=== PATIENT | male | born 1945 | race Caucasian/White ===

== ENCOUNTER → 2016-08-01 | Outpatient (CLI) | payer BC ==
[2016-08-01 17:07] LABS: BASOPHILS % (AUTO) 0 % (0-2); EOSINOPHILS # (AUTO) 0.2 10^3uL; EOSINOPHILS % (AUTO) 2 % (0-4); LYMPHOCYTES # (AUTO) 1.8 X10^3; MEAN CORPUSCULAR HEMOGLOBIN 29.5 PG (26.0-34.0); MEAN CORPUSCULAR VOLUME 87 FL (80-100); MEAN PLATELET VOLUME 9.3 FL (6.0-9.5); MONOCYTES # (AUTO) 0.5 X10^3; MONOCYTES % (AUTO) 7 % (3-11); NEUTROPHILS # (AUTO) 4.9 X10^3; NEUTROPHILS % (AUTO) 66 % (51-67); PLATELET COUNT 298 10^3uL (150-450); WHITE BLOOD COUNT 7.42 10^3uL (4.0-11.0)
[2016-08-01 17:34] LABS: ALBUMIN 4.3 g/dL (3.4-5.0); ANION GAP 14.3 MEQ/L (3-15); CALCULATED IONIZED CALCIUM 4.2 mg/dL (3.8-4.6); TOTAL PROTEIN 7.6 g/dL (6.4-8.5)
== END ==
LOC: LAB 16:56
PROVIDERS: ATTEND Surgery
DX: R10.9 Unspecified abdominal pain (principal); K57.32 Diverticulitis of large intestine without perforation or abscess without bleeding
CPT/HCPCS: 36415; 74177; 80053; 83690; 85025; Q9967

== ENCOUNTER → 2016-08-08 | Outpatient (CLI) | payer BC ==
[2016-08-08 10:56] LABS: BASOPHILS % (AUTO) 0 % (0-2); EOSINOPHILS # (AUTO) 0.1 10^3uL; EOSINOPHILS % (AUTO) 1 % (0-4); LYMPHOCYTES # (AUTO) 1.3 X10^3; MEAN CORPUSCULAR HEMOGLOBIN 29.5 PG (26.0-34.0); MEAN CORPUSCULAR HGB CONC 34.2 g/dL (31.0-37.0); MEAN CORPUSCULAR VOLUME 86 FL (80-100); MEAN PLATELET VOLUME 9.4 FL (6.0-9.5); MONOCYTES % (AUTO) 8 % (3-11); NEUTROPHILS # (AUTO) 10.8 X10^3; NEUTROPHILS % (AUTO) 82 % (51-67); PLATELET COUNT 303 10^3uL (150-450); WHITE BLOOD COUNT 13.29 10^3uL (4.0-11.0)
== END ==
LOC: LAB 10:37
PROVIDERS: ATTEND Surgery
DX: K57.32 Diverticulitis of large intestine without perforation or abscess without bleeding (principal); R50.9 Fever, unspecified
CPT/HCPCS: 36415; 85025

== ENCOUNTER 2016-08-09 08:15 | Inpatient (IN) | payer BC ==
[~2016-08-09] VITALS: Ht 177.8 cm; Wt 84.4 kg
[~2016-08-09 08:15] MED LIST: AMOX1TAB11 PO; FLUT16SP NS; OMEP20TA PO; OMEP40CA36 PO; OXYC1TAB87 PO
--- NOTE | 2016-08-09 09:03 | NUR ---
Patient arrives ambulatory to 302 accompanied by . Alert and oriented X3. Reports medial abdominal pain rated 1/10 on pain scale and chills. Current temperature 97.5 orally. 20g IV initiated into left hand on first attempt by this nurse. See admission for full assessment.
--- OUTSIDE RECORDS SUMMARY | 2016-08-09 09:03 | XMS REPORT | Continuity of Care Document ---
Author Author [facility] Organization [facility] Address Unknown Phone Unavailable Support Name Relationship Address Phone EARNEST DANG MD Caregiver [address] [place] [address] CHIDI YVETTE Next Of Kin [address] [place] [address] Insurance Providers Payer Name Policy Number Subscriber Name Relationship Dakota Draper [facility] [id number] ChidiYvette 01 Chief Complaint and Reason for Visit Chief Complaint GI Complaint Reason for Visit Dysphagia [id number] Problems Medical Problems Problem Onset Date Status Dysphagia ~11/02/2014 Active Esophageal foreign body ~11/02/2014 Active Medications Medication Dose Route Sig Days/Qty Instructions Order Date Discontinued Date Status [None] 11/03/14 Active Social History No social history. Hospital Discharge Instructions No hospital discharge instructions. Plan of Care Discharge Date 11/03/14 1:40am Disposition 01 HOME OR SELF-CARE Condition at Discharge Stable Instructions/Education Provided Esophageal Stricture (ED) Esophageal Spasm (ED) Prescriptions See Medications Section Additional Instructions/Education Small food boluses. Out-patient esophagram and upper GI series later today (November 03) at 11 am here at the [facility] -- check in at 10:30 am. OTC Prilosec 20mg twice a day for now. See Dr. Eaton within 10 days to discuss possible further work up of this recurring problem. Return to ER as needed. Some of your test results may not be complete prior to your leaving the Emergency Department. The Emergency Department is not authorized to give test results over the phone. Please contact the doctor's office listed in this packet of information for your final results. Follow up with your primary care physician or return to the Emergency Department for worsening or worrisome symptoms. * Emergency Department phone number: [phone], x [phone] MEDICAL RECORD If you need copies of your X-rays, call [phone]. If you need copies of your medical record, including lab results, a signed authorization for release of records will be required. A telephone call for release of Health Information is not allowed. BILLING Billing can sometimes be confusing and frustrating. To help avoid confusion in the future, please take a moment to acquaint yourself with the billing parties for services. SERVICE BILLING LIBERTARIAN Emergency Room Services [facility] Physician Services [facility] X-rays [facility] Patients will receive bills for services from the appropriate provider. If you have any questions about your [facility] bill, our staff will be happy to assist you. Please call [phone], and ask for the billing department. THANK YOU for choosing [facility] as your emergency care provider! Functional Status No functional status results. Allergies, Adverse Reactions, Alerts Allergen Type Severity Reaction Status Last Updated Ciprofloxacin Adverse Reaction Intermediate leg cramps Active 11/03/14 Enoxaparin Adverse Reaction Intermediate Active 11/03/14 Immunizations No immunization records. Vital Signs Acute Vital Signs Vital Response Date/Time Temperature (Fahrenheit) 97.9 Pulse 48 bpm Respirations 13 Height 5 ft 10 in Weight 175 lb Body Mass Index 25.0 kg/m^2 Results Test Source Date Result Interp. Ref. Range Comments Albumin/Globulin Ratio November 02, 2014 11:19pm 1.354 N 1.1-1.8 Albumin November 02, 2014 11:19pm 4.2 g/dL N 3.4-5.0 Total Protein November 02, 2014 11:19pm 7.3 g/dL N 6.4-8.5 Alanine Aminotransferase (ALT/SGPT) November 02, 2014 11:19pm 22 U/L L 30- 65 Aspartate Amino Transf (AST/SGOT) November 02, 2014 11:19pm 21 U/L N 15-37 Alkaline Phosphatase November 02, 2014 11:19pm 67 U/L N 38-126 Total Bilirubin November 02, 2014 11:19pm 0.7 mg/dL N 0.1-1.0 Calcium/Ionized Calcium Ratio November 02, 2014 11:19pm 4.1 mg/dL N 3.8-4.6 Calcium Level November 02, 2014 11:19pm 9.5 mg/dL N 8.8-10.8 Calculated Osmolality November 02, 2014 11:19pm 286 mosm/L N 280-300 Glucose Level November 02, 2014 11:19pm 174 mg/dL H 70-110 Estimated GFR (Non- November 02, 2014 11:19pm 77.9 Estimat Glomerular Filtration Rate November 02, 2014 11:19pm 94.2 BUN/Creatinine Ratio November 02, 2014 11:19pm 23 H 10-20 Creatinine November 02, 2014 11:19pm 0.96 mg/dL N 0.8-1.5 Blood Urea Nitrogen November 02, 2014 11:19pm 22 mg/dL H 7-18 Anion Gap November 02, 2014 11:19pm 15.1 MEQ/L H 3-15 Carbon Dioxide Level November 02, 2014 11:19pm 25 mmol/L N 22-29 Chloride Level November 02, 2014 11:19pm 108 mmol/L N 98-108 Potassium Level November 02, 2014 11:19pm 3.5 mmol/L N 3.5-5.1 Sodium Level November 02, 2014 11:19pm 144 mmol/L N 135-150 Basophils # (Auto) November 02, 2014 11:19pm 0.0 10^3uL Eosinophils # (Auto) November 02, 2014 11:19pm 0.1 10^3uL Monocytes # (Auto) November 02, 2014 11:19pm 0.4 X10^3 Lymphocytes # (Auto) November 02, 2014 11:19pm 1.2 X10^3 Neutrophils # (Auto) November 02, 2014 11:19pm 6.2 X10^3 Basophils (%) (Auto) November 02, 2014 11:19pm 0 % N 0-2 Eosinophils (%) (Auto) November 02, 2014 11:19pm 2 % N 0-4 Monocytes (%) (Auto) November 02, 2014 11:19pm 6 % N 3-11 Lymphocytes (%) (Auto) November 02, 2014 11:19pm 15 % L 20-46 Neutrophils (%) (Auto) November 02, 2014 11:19pm 77 % H 51-67 Mean Platelet Volume November 02, 2014 11:19pm 9.5 FL N 6.0-9.5 Platelet Count November 02, 2014 11:19pm 280 10^3uL N 150-450 Red Cell Distribution Width November 02, 2014 11:19pm 13.1 % N 11.8-15.6 Mean Corpuscular Hemoglobin Concent November 02, 2014 11:19pm 34.8 g/dL N 31.0-37.0 Mean Corpuscular Hemoglobin November 02, 2014 11:19pm 30.3 PG N 26.0-34.0 Mean Corpuscular Volume November 02, 2014 11:19pm 87 FL N 80-100 Hematocrit November 02, 2014 11:19pm 39.10 % N 39.00-50.00 Hemoglobin November 02, 2014 11:19pm 13.6 g/dL N 13.5-17.0 Red Blood Count November 02, 2014 11:19pm 4.49 10^6uL L 4.50-5.50 White Blood Count November 02, 2014 11:19pm 8.02 10^3uL N 4.0-11.0 Procedures No known history of procedures. Encounters Encounter Location Date/Time Registered Emergency Room [facility] 11/02/14 9:27pm Recent Diagnosis
[2016-08-09 09:23] VITALS: BP 122/88
[2016-08-09] MEDS ORDERED: SODIUM CHLORIDE FLUSH 3 ML SYR IV PRN (09:30)
[2016-08-09] MEDS ORDERED: NS FLUSH 10 ML PRN IV (09:35)
[2016-08-09] MEDS: LACTATED RINGERS 1,000 ML IV SCH ×2 (09:40→19:30)
[2016-08-09] MEDS ORDERED: AMOX-358 PO (10:48)
--- NOTE | 2016-08-09 10:48 | Progress Note (E) ---
Progress Note History of diverticulitis with 1 week of Augmentin therapy. Increasing abdominal pain, fever leukocytosis last [address] today negative for inflammation. Plan to evaluate other etiologies. H & P dictated. DAVIN DAMON MD Aug 09, 2016 10:48
[2016-08-09] MEDS ORDERED: morphine INJ 2 MG/ML 1 ML SYRINGE IV PRN (10:55)
[2016-08-09] MEDS ORDERED: ONDANSETRON 2 MG/ML (Z0FRAN) 2 ML VIAL IV PRN (10:55)
--- NOTE | 2016-08-09 11:01 | Diagnostic Imaging Report ---
PROCEDURE: CT abdomen and pelvis with contrast. TECHNIQUE: Multiple contiguous axial images were obtained through the abdomen and pelvis after administration of intravenous contrast. INDICATION: Abdominal pain with fever and chills, duration one week. COMPARISON: 08/01/2016. Images through the thoracic base showed a medium-sized esophageal hiatal hernia. The liver and spleen are negative. Adrenals are negative. The pancreas is negative. Gallbladder is negative. Multiple small left renal cysts are present. Small right renal cyst is present. There are no pathologically enlarged lymph nodes in the gastrohepatic or gastrosplenic ligament. Periportal and retroperitoneal lymph nodes are negative. Aorta is negative. Images through the pelvis showed sigmoid diverticulosis. Previously present was fat stranding in the mid sigmoid colon. That fat stranding is no longer identified. There is no free air. There is no evidence for abscess or microperforation. Urinary bladder is negative. IMPRESSION: Sigmoid diverticulosis. No acute finding is identified. Dictated by: Dictated on workstation # [id number]
--- NOTE | 2016-08-09 11:29 | Diagnostic Imaging Report ---
INDICATION: Fever and abdominal pain. 11:15 AM. COMPARISON: 11/02/2014. EXAMINATION: PA and lateral films were obtained. FINDINGS: The cardiac silhouette, mediastinal configuration, and pulmonary vascularity are within normal limits. No significant pleural, lung parenchymal or osseous lesion is identified. A small esophageal hiatal hernia is present, unchanged IMPRESSION: 1. No significant chest x-ray abnormality is identified. 2. No significant change from comparison. Dictated by: Dictated on workstation # [id number]
[2016-08-09 11:32] VITALS: BP 114/78
[2016-08-09] MEDS ORDERED: KETOROLAC 15 MG/ML (TORADOL) 1 ML VIAL IV PRN (12:50)
--- NOTE | 2016-08-09 13:03 | HISTORY AND PHYSICAL ---
HISTORY CHIEF COMPLAINT: Mid abdominal pain HISTORY OF PRESENT ILLNESS: This patient was seen by Dr. Dugan on 08/01/2016 with mid abdominal pain. At that time CT scan revealed uncomplicated diverticulitis. He was prescribed Augmentin 875 twice daily. He was doing well until a couple of days ago when he began to have some increasing pain and noticed a temperature the night before last of 100.7. I saw him in the office yesterday. He had minimal abdominal tenderness and mildly elevated white count. He was to observe his temperature at home overnight, clear liquid diet, continue his antibiotics and return today for follow up evaluation. Overnight last night his temperature was 102*, chills, and his pain increased. The pain is sharp to dull in nature, 7/10, mid abdominal location with no radiation and no modifying factors. The patient had mild nausea earlier today, but not currently. He had no bowel movement or flatus since I saw him in the office yesterday. Prior to that he had some mild constipation without significant difficulty. No diarrhea, melena or bright red blood per rectum. PAST MEDICAL HISTORY: Gastroesophageal reflux disease. PAST SURGICAL HISTORY: 1. Upper endoscopy with esophageal dilatation. 2. Screening colonoscopy (last was 9 years ago, negative except for diverticular disease). 3. Umbilical hernia repair. 4. Urinary tract laser surgery for obstruction. ALLERGIES: 1. Ciprofloxacin which caused leg cramps. 2. Enoxaparin, uncertain type of reaction. CURRENT MEDICATIONS: 1. Omeprazole 20 mg daily. 2. Augmentin 875 mg once or twice daily. FAMILY HISTORY: Significant for father with alcoholism and brother with a history of hypertension. No family history of GI tract neoplasia, peptic ulcer, or inflammatory bowel disease. SOCIAL HISTORY: The patient is and retired. He denies tobacco, alcohol or illicit drug use. REVIEW OF SYSTEMS: Reveals no chest pain, shortness of breath or cough. No sore throat or drainage. No syncope. No history of palpitations or dizziness. Weight has been stable and appetite normal prior to this. No odynophagia or dysphagia. He has occasional pyrosis. He has no urinary tract symptoms such as dysuria, hematuria, pyuria, urinary frequency, or urgency. No history of easy bleeding or bruising. No muscle or joint aches and pains except for chronic back pain. PHYSICAL EXAM GENERAL: Patient is well developed, well nourished, and in no acute distress. VITAL SIGNS: Reveals temperature 97.5, pulse 97 and regular, respirations 18 and regular and Blood pressure 120/72. Heart rate is 70 and regular. Pulse oximetry 96% on room air. HEENT: Reveals nasopharynx and conjunctivae clear. Neck without mass. LUNGS: Clear to P&A. No CVA tenderness. CV: Reveals regular rhythm with no murmurs or gallops. ABDOMEN: Soft with mild tenderness just below, and to the right, of the umbilicus with mild voluntary guarding, but no rebound. Normal bowel sounds are present. There is no mass, organomegaly, or hernia. There is no groin lymphadenopathy. EXTREMITIES: Reveal no edema or tenderness. Pulse is 2+. NEUROLOGIC: Reveals no focal deficits. The patient is alert and oriented with appropriate affect. LABORATORY: Laboratory values from yesterday showed a white count of 13,300 with 82% polys and 10% lymphocytes. No bands were noted. IMAGING: CT scan was reviewed with the radiologist from today. This shows diverticulosis with no inflammatory changes or abscess. No free air or free fluid. ASSESSMENT: Increasing abdominal pain and fever with uncertain etiology. Possibilities include respiratory tract or urinary tract infection, viral illness, peptic ulcer, or gallbladder disease. PLAN: Blood cultures. Evaluate other potential etiologies. We will check a urinalysis, obtain a chest x-ray, and abdominal ultrasound. Medical consultation with the hospitalist for further evaluation as well.
[2016-08-09] MEDS ORDERED: VANCOMYCIN 1,000 MG in SODIUM CHLORIDE 250 ML IV SCH (13:45)
--- NOTE | 2016-08-09 14:11 | NUR ---
22g IV initiated into right hand on first attempt by this nurse. IV Zosyn initiated. Patient tolerates well.
[2016-08-09 14:21] LABS: ALBUMIN 3.9 g/dL (3.4-5.0); ANION GAP 15.7 MEQ/L (3-15); TOTAL PROTEIN 7.4 g/dL (6.4-8.5)
[2016-08-09 14:22] LABS: MEAN CORPUSCULAR HEMOGLOBIN 30.1 PG (26.0-34.0); MEAN CORPUSCULAR HGB CONC 34.1 g/dL (31.0-37.0); MEAN CORPUSCULAR VOLUME 88 FL (80-100); MEAN PLATELET VOLUME 10.1 FL (6.0-9.5); PLATELET COUNT 264 10^3uL (150-450)
[2016-08-09] MEDS: VANCOMYCIN 1250 MG in SODIUM CHLORIDE 250 ML IV SCH (14:39)
[2016-08-09] MEDS: PIPERACILLIN/TAZOBACTAM 3.375 GM in SODIUM CHLORIDE 100 ML IV SCH ×2 (14:44→22:17)
[2016-08-09 15:16] LABS: BAND NEUTROPHILS % 1 % (0-6); LYMPHOCYTES # 1.2 #
[2016-08-09 15:17] LABS: EOSINOPHILS % 2 % (0-4); MONOCYTES # 0.6 #; MONOCYTES % 5 % (3-11); RBC MORPH NORMAL (NORMAL); SEGMENTED NEUTROPHILS % 81 % (51-67); TOTAL CELLS COUNTED 100
[2016-08-09 15:33] VITALS: BP 99/64
[2016-08-09] MEDS ORDERED: ACET-2264 PO (16:07)
--- NOTE | 2016-08-09 16:07 | NUR ---
MED REC COMPLETE--current med list obtained from external med history application and patient interview.
--- NOTE | 2016-08-09 16:44 | Diagnostic Imaging Report ---
PROCEDURE: US abdomen complete. TECHNIQUE: Multiple real-time grayscale images were obtained over the abdomen in various projections. INDICATION: Abdominal pain. FINDINGS: There is no focal hepatic or splenic abnormality identified. The gallbladder has a normal appearance without evidence of stone or wall thickening. There is no biliary ductal dilatation. The pancreas is largely obscured by overlying bowel. There is mild atherosclerotic calcification in the abdominal aorta. No inferior vena caval abnormality is documented. There is a 3 cm cyst in the inferior pole of the right kidney. There is a probable 2 cm cyst projecting inferiorly from the left kidney. No free fluid is seen. IMPRESSION: No ultrasound evidence of acute abnormality in the abdomen Dictated by: Dictated on workstation # [id number]
[2016-08-09 17:07] LABS: BILIRUBIN,URINE Negative (Negative); CLARITY,URINE Clear; COLOR,URINE Yellow; GLUCOSE, URINE (UA) Negative (Negative); LEUKOCYTE ESTERASE, URINE Negative (Negative); UROBILINOGEN,URINE 0.2 mg/dL (0.2-1.0)
--- NOTE | 2016-08-09 17:07 | NUR ---
Vancomycin Dosing: Pharmacy managed S: Diverticulitis: outpatient treatment with Augmentin. Pt worsening, admitted. Empiric therapy with Pip/Stephen and Vancomycin. blood cultures pending. Respiratory panel negative. O: 71y/o M, wt = 84 kg, SCr = 1.22 CrCl = 84 ml/min A/P: Vancomycin 1250mg IV q18hr. Predicted trough of 14 mcg/mL for therapeutic goal of 15mcg/ml. Trough to be drawn before 5th dose (09-12-16 @ 1230). Will monitor and adjust if needed. Addendum: 08/09/16 at 1744 by Stephanie Briscoe PHARM CORRECTION: Vanco trough on 08-12-16.
[2016-08-09 17:17] LABS: URINE CENTRIFUGED VOLUME 12 mL
[2016-08-09] MEDS ORDERED: ACETAMINOPHEN 325 MG TAB (TYLENOL) PO PRN (17:50)
--- NOTE | 2016-08-09 17:50 | Progress Note (E) ---
Progress Note Surgery note Subjective: Feels much better with decreased pain. Is hungry. Objective: Vitals stable, in no distress. 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 Lungs clear. No CVAT. Abdomen soft, with minimal mid abdominal tenderness. No peritoneal signs. Normal BS. Labs: show WBC decreased to 11,000. U/A 5-10 RBCs, but otherwise negative. CXR NAD. Abdominal U/S negative Impression: Possible viral syndrome vs bacterial, clinically improved. No surgical abdomen. Recommendations: Appreciate hospitalist input. Advance diet, observe pending culture results. DAVIN DAMON MD Aug 09, 2016 17:50
--- NOTE | 2016-08-09 18:12 | NUR ---
Patient sitting up in bed tolerating full liquid supper tray. Denies abdominal pain. PRN Toradol provided on one occasion throughout day shift. Reports pain is intermittent and "tolerable". Voids only 10ml clear yellow urine on day shift. UA obtained and sent to lab. at bedside. IV antibiotics infusing without difficulty. Remains afebrile. Call light in reach.
[2016-08-09 19:58] VITALS: BP 102/61
[2016-08-09] MEDS ORDERED: PANTOPRAZOLE 20 MG (PROTONIX) TABLET PO ONE (20:00)
[2016-08-09] MEDS ORDERED: PANTOPRAZOLE 40 MG (PROTONIX) TAB PO ONE ×2 (20:43→21:05)
--- NOTE | 2016-08-10 | NUR ---
Bladder scan performed as pt had not voided nor felt need to void in a few hours. 481mL resulted. Staff requested that pt attempt to void. Pt voided 600mL dark harjinder, clear urine. Pt states he usually only goes to the restroom every 11-12 hours. Will continue to monitor.
[2016-08-10 00:04] VITALS: BP 98/57
[2016-08-10 04:00] VITALS: BP 94/55
[2016-08-10 05:42] LABS: BASOPHILS % (AUTO) 1 % (0-2); EOSINOPHILS # (AUTO) 0.2 10^3uL; EOSINOPHILS % (AUTO) 2 % (0-4); LYMPHOCYTES # (AUTO) 1.4 X10^3; MEAN CORPUSCULAR HEMOGLOBIN 29.8 PG (26.0-34.0); MEAN CORPUSCULAR HGB CONC 34.1 g/dL (31.0-37.0); MEAN CORPUSCULAR VOLUME 88 FL (80-100); MEAN PLATELET VOLUME 9.6 FL (6.0-9.5); MONOCYTES # (AUTO) 0.9 X10^3; MONOCYTES % (AUTO) 10 % (3-11); NEUTROPHILS # (AUTO) 6.2 X10^3; NEUTROPHILS % (AUTO) 71 % (51-67); PLATELET COUNT 227 10^3uL (150-450); WHITE BLOOD COUNT 8.72 10^3uL (4.0-11.0)
[2016-08-10 06:01] LABS: ANION GAP 12.4 MEQ/L (3-15)
[2016-08-10] MEDS: PIPERACILLIN/TAZOBACTAM 3.375 GM in SODIUM CHLORIDE 100 ML IV SCH (06:39)
--- NOTE | 2016-08-10 06:47 | NUR ---
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 Pt has denied pain or nausea this shift. IV abx infusing with no difficulty. Skin warm, dry, intact. Resprs nonlabored, even on RA. Pt denies needs. Call light within reach.
[2016-08-10] MEDS: VANCOMYCIN 1250 MG in SODIUM CHLORIDE 250 ML IV SCH (08:02)
[2016-08-10 08:03] VITALS: BP 102/59
[2016-08-10] MEDS: NS FLUSH 3 ML DAILY IV SCH (08:03)
--- NOTE | 2016-08-10 08:10 | NUR ---
Pt alert, oriented, speech clear. Lungs clear, denies dyspnea or cough this morning, on room air. Abdomen soft, non-tender, denies pain at present, no nausea reported. IV's to bilateral hands patent, IV antibiotics infusing. Discussed plan of care, call light in reach. Will call for needs.
--- NOTE | 2016-08-10 10:48 | Progress Note (E) ---
Progress Note Surgery note Subjective: Feels well with no pain or nausea. Tolerating orals well. Positive flatus, but no BM yet. Objective: Afebrile, vitals stable. Alert, oriented, in no distress. 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 Lungs clear, no CVAT. Abdomen soft, nontender with normal BS. WBC normal except 71% polys (no bands). Viral serology negative. Blood cultures negative to date. Impression: Clinically improved. Etiology of symptom complex uncertain. Recommendations: Advance diet. Plan per Dr. Leroy was to continue broad spectrum antibiotics until cultures returned. Will discuss mgt. plan with Dr. Guillermo today. DAVIN DAMON MD Aug 10, 2016 10:47
--- NOTE | 2016-08-10 11:34 | Progress Note-A/P (E) ---
Progress Note Subjective: Patient is continuing to improve. He has no abdominal pain and is tolerating po without difficulty. Discussed current findings. Objective: Current Medications Morphine Sulfate 2 mg Q2H PRN IV Ondansetron HCl 4 mg Q6H PRN IV Ketorolac Tromethamine 15 mg 15 mg Q6H PRN IV Piperacillin/Tazobactam 3.375 gm Q8HR IV Vancomycin Q18H IV Acetaminophen 650 mg Q4H PRN PO Pantoprazole 20 mg DAILY@2100 PO Vital Signs Date Time Temp Pulse Resp B/P Pulse Ox O2 Delivery O2 Flow Rate FiO2 08/10/16 08:03 97.5 60 16 102/59 96 Room air 0.00 60 I & O Past 24 hrs 08/10/16 07:00 Intake Total 2964 ml Output Total 710 ml Balance 2254 ml Intake Oral 1603 ml IV Total 1361 ml Output Urine Total 710 ml Physical Exam General--Awake and alert. No distress. HEENT--Normocephalic. MMM in oral cavity. Lungs--Clear to auscultation bilaterally. Nonlabored respirations. Heart--RRR. No murmurs. Abdomen--Normal bowel sounds. Soft. Nondistended. Nontender to palpation. Extremities--No edema to lower extremities. Past 24 hour Lab Results 08/09/16 11:06 08/10/16 05:05 Laboratory Results Past 24 Hrs 08/09/16 11:06: Absolute Band Neutrophils 0.1, Alanine Aminotransferase (ALT/SGPT) 37, Albumin 3.9, Albumin/Globulin Ratio 1.114, Alkaline Phosphatase 78, Anion Gap 15.7, Aspartate Amino Transf (AST/SGOT) 20, BUN/Creatinine Ratio 16, Band Neutrophils % 1, Basophils # (Manual) 0.0, Basophils % (Manual) 0, Blood Morphology Comment Normal, Blood Urea Nitrogen 20, Calcium Level 9.2, Calcium/Ionized Calcium Ratio 4.0, Calculated Osmolality 278, Carbon Dioxide Level 26, Chloride Level 106, Creatinine 1.22, Differential Total Cells Counted 100, Eosinophils # 0.2, Eosinophils % (Manual) 2, Estimat Glomerular Filtration Rate 71.1, Estimated GFR (Non- 58.7, Glucose Level 100, Hematocrit 41.10, Hemoglobin 14.0, Lymphocytes # 1.2, Lymphocytes % (Manual) 11, Mean Corpuscular Hemoglobin 30.1, Mean Corpuscular Hemoglobin Concent 34.1, Mean Corpuscular Volume 88, Mean Platelet Volume 10.1, Monocytes # 0.6, Monocytes % (Manual) 5, Neutrophils # 8.9, Platelet Count 264, Potassium Level 4.3, Red Blood Count 4.65, Red Cell Distribution Width 13.7, Segmented Neutrophils % 81, Sodium Level 143, Total Bilirubin 0.7, Total Protein 7.4, White Blood Count 11.00 08/09/16 14:12: Adenovirus (PCR) Negative, Bordetella parapertussis DNA (PCR) Negative, Chlamydophila pneumoniae (PCR) Negative, Coronavirus Type 229E (PCR) Negative, Coronavirus Type HKU1 (PCR) Negative, Coronavirus Type NL63 (PCR) Negative, Coronavirus Type OC43 (PCR) Negative, Enterovirus/Rhinovirus (PCR) Negative, Human Metapneumovirus (PCR) Negative, Influenza Type A (H1) (PCR) Negative, Influenza Virus Type B (PCR) Negative, Mycoplasma pneumoniae (PCR) Negative, Parainfluenza Type 1 (PCR) Negative, Parainfluenza Type 2 (PCR) Negative, Parainfluenza Type 3 (PCR) Negative, Parainfluenza Type 4 (PCR) Negative, Respiratory Syncytial Virus (PCR) Negative 08/09/16 16:30: Urine Bacteria None seen, Urine Bilirubin Negative, Urine Blood 1+, Urine Clarity Clear, Urine Collection Type Clean catch, Urine Color Yellow, Urine Glucose (UA) Negative, Urine Ketones Negative, Urine Leukocyte Esterase Negative , Urine Microscopic RBC 5-10, Urine Microscopic WBC None seen, Urine Mucus 2+, Urine Nitrite Negative, Urine Protein 1+, Urine Specific [place] 1.015, Urine Squamous Epithelial Cells 0-2, Urine Urobilinogen 0.2, Urine pH 6.0, Volume Urine Centrifuged 12 ml 08/10/16 05:05: Anion Gap 12.4, BUN/Creatinine Ratio 18, Blood Urea Nitrogen 20, Calcium Level 9.0, Carbon Dioxide Level 25, Chloride Level 107, Creatinine 1.12, Estimat Glomerular Filtration Rate 78.4, Estimated GFR (Non- 64.8, Glucose Level 90, Hematocrit 37.00, Hemoglobin 12.6, Mean Corpuscular Hemoglobin 29.8, Mean Corpuscular Hemoglobin Concent 34.1, Mean Corpuscular Volume 88, Mean Platelet Volume 9.6, Platelet Count 227, Potassium Level 4.4, Red Blood Count 4.23, Red Cell Distribution Width 13.3, Sodium Level 140, White Blood Count 8.72, Basophils # (Auto) 0.0, Basophils (%) (Auto) 1, Eosinophils # (Auto) 0.2, Eosinophils (%) (Auto) 2, Lymphocytes # (Auto) 1.4, Lymphocytes (%) (Auto) 16, Monocytes # (Auto) 0.9, Monocytes (%) (Auto) 10, Neutrophils # (Auto ) 6.2, Neutrophils (%) (Auto) 71 Microbiology 08/09/16 Blood Culture - Preliminary, Resulted No Growth in 24 hours Imaging Results 08.09.16 CT Abd IMPRESSION: Sigmoid diverticulosis. No acute finding is identified. 08.09.16 CXR IMPRESSION: 1. No significant chest x-ray abnormality is identified. 2. No significant change from comparison. 08.09.16 Abd u/s IMPRESSION: No ultrasound evidence of acute abnormality in the abdomen Assessment/Plan Abdominal pain Improved. Thought to be due to diverticulitis. Abx started. Diverticulosis/diverticulitis Started on augmentin on 08.02. Continued on zosyn upon admission. Will change to oral abx in preparation of discharge. Fever Improved. None recorded here. DVT proph FEN Regular per surgery Electrolytes normal Fluids initially 100/hr of LR, no fluids right now. Code status Full code. Dispo Per surgery. NEREIDA WHITEHEAD MD Aug 10, 2016 11:34
[2016-08-10 12:31] VITALS: BP 114/74
[2016-08-10 16:29] VITALS: BP 104/62
--- NOTE | 2016-08-10 18:40 | NUR ---
Pt has had uneventful day, up independently in room w/o complaints. Tolerating regular diet w/o abdominal pain or nausea.
--- NOTE | 2016-08-10 20:00 | NUR ---
Patient rests in bed. Alert and oriented. Pleasant. No cough. LS clear bilaterally. No discomforts voiced. SL x2 intact in bilateral hands without complications to sites. No concerns at present time. Call light within reach.
[2016-08-10 20:23] VITALS: BP 126/59
[2016-08-10] MEDS ORDERED: PANTOPRAZOLE 20 MG (PROTONIX) TABLET PO SCH (21:00)
[2016-08-10] MEDS: AMOXICILLIN/CLAVULANATE 875MG-125MG (AUGMENTIN) TABLET PO SCH (21:15)
[2016-08-11 00:02] VITALS: BP 95/61
[2016-08-11 04:00] VITALS: BP 107/67
[2016-08-11 06:16] LABS: BASOPHILS % (AUTO) 1 % (0-2); EOSINOPHILS # (AUTO) 0.3 10^3uL; EOSINOPHILS % (AUTO) 5 % (0-4); LYMPHOCYTES # (AUTO) 1.9 X10^3; MEAN CORPUSCULAR HEMOGLOBIN 29.4 PG (26.0-34.0); MEAN CORPUSCULAR HGB CONC 33.7 g/dL (31.0-37.0); MEAN CORPUSCULAR VOLUME 87 FL (80-100); MONOCYTES # (AUTO) 0.6 X10^3; MONOCYTES % (AUTO) 11 % (3-11); NEUTROPHILS # (AUTO) 2.8 X10^3; NEUTROPHILS % (AUTO) 50 % (51-67); PLATELET COUNT 253 10^3uL (150-450); WHITE BLOOD COUNT 5.67 10^3uL (4.0-11.0)
--- NOTE | 2016-08-11 06:22 | NUR ---
Patient rested at long intervals tonight. Had Tylenol 650 mg during the night for neck soreness and stated this morning that it did relieve his discomfort. No concerns at this time. Pleasant. Call light within reach.
[2016-08-11 07:33] VITALS: BP 107/56
--- NOTE | 2016-08-11 07:50 | NUR ---
PT AWAKE, SITTING 45 DEG IN BED, TALKATIVE, DENIES C/O PAIN.
--- NOTE | 2016-08-11 07:52 | Progress Note-A/P (E) ---
Progress Note Subjective: Patient has remained afebrile overnight. No further concerns. Tolerating po abx well. Tolerating diet well. He would like to go home. Objective: Current Medications Morphine Sulfate 2 mg Q2H PRN IV Ondansetron HCl 4 mg Q6H PRN IV Ketorolac Tromethamine 15 mg 15 mg Q6H PRN IV Piperacillin/Tazobactam 3.375 gm Q8HR IV Vancomycin Q18H IV Acetaminophen 650 mg Q4H PRN PO Pantoprazole 20 mg DAILY@2100 PO Vital Signs Date Time Temp Pulse Resp B/P Pulse Ox O2 Delivery O2 Flow Rate FiO2 08/11/16 07:33 97.6 58 16 107/56 96 Room air 08/10/16 16:29 0.00 I & O Past 24 hrs 08/11/16 07:00 Intake Total 2261 ml Output Total 1200 ml Balance 1061 ml Intake Oral 1961 ml IV Total 300 ml Output Urine Total 1200 ml Physical Exam General--Awake and alert. Pleasant. HEENT--Normocephalic. Atraumatic. MMM in oral cavity. Lungs--CTA bilaterally. Nonlabored respirations. Heart--RRR. No murmurs appreciated. Abdomen--Normal bowel sounds. Soft. Nondistended. NTTP. Extremities--No edema to lower extremities. Past 24 hour Lab Results 08/11/16 05:00 Laboratory Results Past 24 Hrs 08/11/16 05:00: Basophils # (Auto) 0.0, Basophils (%) (Auto) 1, Eosinophils # (Auto) 0.3, Eosinophils (%) (Auto) 5, Hematocrit 38.00, Hemoglobin 12.8, Lymphocytes # (Auto ) 1.9, Lymphocytes (%) (Auto) 34, Mean Corpuscular Hemoglobin 29.4, Mean Corpuscular Hemoglobin Concent 33.7, Mean Corpuscular Volume 87, Mean Platelet Volume 10.0, Monocytes # (Auto) 0.6, Monocytes (%) (Auto) 11, Neutrophils # ( Auto) 2.8, Neutrophils (%) (Auto) 50, Platelet Count 253, Red Blood Count 4.35, Red Cell Distribution Width 13.1, White Blood Count 5.67 Microbiology 08/09/16 Blood Culture - Preliminary, Resulted No Growth in 48 hours Imaging Results 08.09.16 CT Abd IMPRESSION: Sigmoid diverticulosis. No acute finding is identified. 08.09.16 CXR IMPRESSION: 1. No significant chest x-ray abnormality is identified. 2. No significant change from comparison. 08.09.16 Abd u/s IMPRESSION: No ultrasound evidence of acute abnormality in the abdomen Assessment/Plan Abdominal pain Improved. Thought to be due to diverticulitis. Abx started on admission. Changed to orals on 08.10.16. Diverticulosis/diverticulitis Started on augmentin on 08.02 as an outpatient. Continued on zosyn upon admission. Changed to augmentin on 08.10.16 in preparation of discharge. BC's negative at 48 hrs x 2. Fever Improved. None recorded here. DVT proph FEN Regular per surgery Electrolytes normal Fluids initially 100/hr of LR, no fluids right now. Code status Full code. Dispo Ok to d/c from a medical stand point. Final dispo per surgery. NEREIDA WHITEHEAD MD Aug 11, 2016 07:52
--- NOTE | 2016-08-11 08:30 | NUR ---
GOOD APPETITE FOR BREAKFAST, DR. WHITEHEAD IN TO VISIT PT.
[2016-08-11] MEDS: AMOXICILLIN/CLAVULANATE 875MG-125MG (AUGMENTIN) TABLET PO SCH (08:31)
[2016-08-11] MEDS: NS FLUSH 3 ML DAILY IV SCH (08:34)
--- NOTE | 2016-08-11 09:31 | Progress Note (E) ---
Progress Note Surgery note Subjective: Feels well. No pain, nausea, sore throat or cough. No symptoms. Had normal BM this morning. Eating well. Objective: Afebrile. Vitals stable. In no distress. ADMINISTRATIVE TECH clear. Neck supple and nontender. Lungs clear. No CVAT. Abdomen soft, nontender. Normal BS. WBC normal. Blood cultures negative at 48 hrs. Impression: Resolving illness. Condition: Good. Recommendations: Discharge home. As discussed with Dr. Guillermo, complete last 3 days of Augmentin. DAVIN DAMON MD Aug 11, 2016 09:31
--- NOTE | 2016-08-11 09:39 | Discharge Instructions (E) ---
Discharge Instructions Instructions Call for fever over 100.5, increasing pain or nausea. Activity Instructions Normal Doctor's Appointment Already scheduled with Dr. Dugan on 08/16/16 Discharge Diet: High Fiber DAVIN DAMON MD Aug 11, 2016 09:39
--- NOTE | 2016-08-11 09:50 | NUR ---
IVL X2, BILAT HANDS, DC'D WITHOUT INCIDENT, [employer] APPLIED, R HAND SL PINK AT INSERTION SITE, PT EDUCATED ON S/S INFECTION, PT ON AUGMENTIN AT THIS TIME.
--- NOTE | 2016-08-11 10:00 | NUR ---
PT DISCHARGED AMB WITH FAMILY, ACCOMP BY [employer]. DISCHARGE INST PROVIDED VERBALLY & PER PRINTED PACKET, PT DENIES QUESTIONS/CONCERNS, DECLINES PHARMACIST, TAKING 2 HOME MEDS AT [facility] WHICH WAS THE SAME ADMISSION.
--- NOTE | 2016-08-12 09:32 | CONSULTATION REPORT ---
ATTENDING PHYSICIAN: Ankit Thornton MD CONSULTING PHYSICIAN: Phillip Leroy MD REPORT Date of Report: 08/09/2016 IMPRESSION AND PLAN: 1. Sepsis. Possibly secondary to diverticulitis with bacterial seeding of the blood. I agree with blood cultures x2. We will follow the culture results. We will go ahead and start him on vancomycin and Zosyn for aggressive antibiotic treatment. It is also possible that he has a viral infection. He has had a sore throat for the past couple of days, so we will further evaluate possible infectious agents. 2. Gastroesophageal reflux disease. I agree with his current home medications. HISTORY AND PRESENT ILLNESS: This is a very pleasant 71-year-old male who is accompanied by his , who was admitted to [facility] on 08/09/2016. He was a direct admission. He was seen by Dr. Thornton at his office with abdominal pain. The patient had been recently treated for an uncomplicated diverticulitis. He was given Augmentin for a full course. He still does have some abdominal tenderness, as well as an elevated white count. He is continued on a conservative diet and followed up for further evaluation. On return his temperature was noted to be 102* and his pain had increased. He also had some mild nausea. He h ad a bowel movement on 08/08. No bleeding or dark stools. Of note, the patient does have a sore throat. He has a bit of a runny nose. No sick contacts. No shortness of air, cough or any other respiratory issues. PAST MEDICAL HISTORY: Significant for gastroesophageal reflux disease. PAST SURGICAL HISTORY: 1. EGD with esophageal dilatation. 2. Colonoscopy. 3. Umbilical hernia repair. 4. Urinary tract laser surgery for an obstruction. ALLERGIES: 1. Cipro. 2. Lovenox. HOME MEDICATIONS: Omeprazole 20 mg daily. FAMILY HISTORY: Family history of alcoholism and hypertension. SOCIAL HISTORY: He is and retired. No tobacco, alcohol or drugs. He is a full code. His is his DPOA. REVIEW OF SYSTEMS: Negative other than what is stated in the HPI. PHYSICAL EXAM VITAL SIGNS: Temperature 97.5, pulse 97, respirations 18, blood pressure 114/78. O2 sat 96% on room air. GENERAL: He is alert and in no acute distress. Very pleasant. OPHTHALMOLOGIC: MEENA, EOMI, conjunctivae within normal limits. Nonicteric. ENT: Oropharynx he has some erythematous streaking. No exudate. He has postnasal drip. Throat is somewhat tender to palpation. No trouble swallowing. Thyroid is normal in size. CHEST: Clear bilaterally. . Good air flow. CARDIOVASCULAR: Regular rate and rhythm. No murmurs or clicks. No . Pulse is symmetric. : Deferred. ABDOMEN: Soft, nondistended. Mildly tender to palpation in the periumbilical area. No rebound or guarding. Normal bowel sounds. EXTREMITIES: No edema, cyanosis or clubbing. SKIN: No rash. Thank you, Dr. Thornton for consulting me on this patient. If you have any questions at any time during the hospital, please feel free to contact me.
--- NOTE | 2016-08-12 12:56 | DISCHARGE SUMMARY ---
ADMISSION DATE: 08/09/2016 DISCHARGE DATE: 08/11/2016 DISCHARGE DIAGNOSES: 1. Diverticulitis. 2. Viral syndrome. CONSULTANTS: Hospitalist Service PRESENT ILLNESS AND POSITIVE PHYSICAL FINDINGS: This patient was initially seen by Dr. Dugan on 08/01/2016 with mid abdominal pain. A CT showed uncomplicated diverticulitis. He was prescribed Augmentin 875 twice daily. He was doing well until a couple of days prior to admission when he began to have increase in pain and fever at home. The night prior to admission, his fever was as high as 102. He was therefore admitted for further treatment and evaluation. On exam he was noted to have mild mid abdominal tenderness. SIGNIFICANT X-RAY AND LABORATORY DATA: Admission laboratory values showed white count of 11,000 with 81% polys and 1 band. Chemistry was significant for BUN of 20. Liver function studies were normal. Urine analysis showed 5 to 10 red cells per high-powered field, otherwise no acute findings. Viral serology was negative. IMAGING: Abdominal CT showed resolution of prior diverticulitis, and no acute finding. Abdominal ultrasound showed no acute process. Chest x-ray was also negative. HOSPITAL COURSE AND TREATMENT: The patient was admitted and the hospitalist service was consulted. The patient was started on intravenous vancomycin and Zosyn, after blood cultures were obtained. The patient's symptoms rapidly improved and he remained afebrile during hospitalization. The WBC and differential returned to normal. The patient initially had a sore throat and mild erythema, but this also improved and resolved during the hospitalization. The patient was discharged home. The patient may resume normal activity and diet. He is encouraged to add soluble fiber supplement to his diet daily and increase water intake to avoid constipation. He is advised to complete his Augmentin therapy. CONDITION ON DISCHARGE: Good. PROGNOSIS: Good. DISCHARGE MEDICATIONS: 1. Augmentin (3 more days) 875 twice daily. 2. He is also to resume his home medication of Omeprazole 20 mg daily. DISCHARGE INSTRUCTIONS: 1. Warning signs of fever, increasing pain, nausea or vomiting discussed with the patient. 2. He has a scheduled appointment to follow up with Dr. Dugan on 08/16/2016.
== END 2016-08-11 10:00 | disposition home or self-care (01) | DRG 392 ==
LOC: OBSVTOIN 08:59 → MED/SURG 08:59
PROVIDERS: ADMIT Surgery; ATTEND Surgery
DX: K57.32 Diverticulitis of large intestine without perforation or abscess without bleeding (principal); K21.9 Gastro-esophageal reflux disease without esophagitis; B34.9 Viral infection, unspecified
CPT/HCPCS: 36415; 71020; 74177; 76700; 80048; 80053; 81003; 81015; 85007; 85025; 85027; 87040; 87486; 87581; 87633; 87798